=== PATIENT | female | born 1990 | race Caucasian/White ===

== ENCOUNTER → 2017-10-15 | Outpatient (CLI) | payer OTHER | END | disposition home or self-care (01) | LOC: US 15:21 | DX: O26.842 Uterine size-date discrepancy, second trimester (principal); O09.92 Supervision of high risk pregnancy, unspecified, second trimester; Z3A.20 20 weeks gestation of pregnancy | CPT/HCPCS: 76805 ==

== ENCOUNTER 2017-10-19 14:38 | Observation (INO) | payer OTHER | END 2017-10-19 17:40 | disposition home or self-care (01) | LOC: 3 SO LND 14:38 | DX: O26.892 Other specified pregnancy related conditions, second trimester (principal); R10.10 Upper abdominal pain, unspecified; Z3A.20 20 weeks gestation of pregnancy | CPT/HCPCS: 76805; G0378; G0379 ==

== ENCOUNTER 2017-12-05 16:33 | Emergency (ER) | payer OTHER ==
[2017-12-05] MEDS ORDERED: diphenhydrAMINE 50 MG/ML VIAL ×2 (16:44)
[2017-12-05] MEDS ORDERED: methylPREDNISolone SOD SUCC PF 125 MG/2 ML VIAL. ×2 (16:44)
[2017-12-05] MEDS: IV NORMAL SALINE 1000ML BAG 1,000 ML IV ×2 (16:48)
[2017-12-05] MEDS: diphenhydrAMINE 50 MG/ML VIAL IVP ×2 (16:51)
[2017-12-05] MEDS: methylPREDNISolone SOD SUCC PF 125 MG/2 ML VIAL. IV ×2 (16:53)
== END 2017-12-05 20:03 | disposition home or self-care (01) ==
LOC: ER 16:33
DX: T78.1XXA Other adverse food reactions, not elsewhere classified, initial encounter (principal); L29.8 Other pruritus; R07.89 Other chest pain; R20.2 Paresthesia of skin; Z91.018 Allergy to other foods; Z91.010 Allergy to peanuts; X58.XXXA Exposure to other specified factors, initial encounter
CPT/HCPCS: 93005; 96361; 96374; 96375; 99285-25; J1200; J2930; J7030

== ENCOUNTER 2018-02-13 16:10 | Observation (INO) | payer OTHER ==
[2018-02-13] MEDS ORDERED: IV RINGERS,LACTATED 1000ML 1,000 ML IV (16:30)
== END 2018-02-13 18:00 | disposition home or self-care (01) ==
LOC: 3 SO LND 16:10
DX: O42.92 Full-term premature rupture of membranes, unspecified as to length of time between rupture and onset of labor (principal); Z3A.37 37 weeks gestation of pregnancy
CPT/HCPCS: 59025; 76815; G0378; G0379

== ENCOUNTER 2018-02-27 05:58 | Inpatient (IN) | payer OTHER ==
[2018-02-27] MEDS ORDERED: IV RINGERS,LACTATED 1000ML 1,000 ML IV (06:30)
[2018-02-27] MEDS: IV RINGERS,LACTATED 1000ML 1,000 ML IV ×2 (06:32→07:41)
[2018-02-27] MEDS ORDERED: ATROPINE 0.5 MG/5 ML DISP.SYRINGE. IV (06:45)
[2018-02-27] MEDS ORDERED: NALOXONE 0.4 MG/ML VIAL. IV (06:45)
[2018-02-27 06:51] LABS: HEMATOCRIT 32.5 % (36.0-47.0); HEMOGLOBIN 11.3 g/dL (12.0-15.5); MEAN CORPUSCULAR HEMOGLOBIN 31 pg (25-35); MEAN CORPUSCULAR HGB CONC 35 g/dL (31-37); MEAN CORPUSCULAR VOLUME 89 fL (79-100); PLATELET COUNT 161 x10^3/uL (140-400); RED BLOOD COUNT 3.65 x10^6/uL (3.50-5.40)
[2018-02-27] MEDS ORDERED: MORPHINE PF 5 MG/10 ML VIAL. (07:34)
[2018-02-27] MEDS ORDERED: fentaNYL PF VIAL 100 MCG/2 ML VIAL (07:34)
[2018-02-27] MEDS ORDERED: METOCLOPRAMIDE HCL 10 MG/2 ML VIAL. (07:34)
[2018-02-27] MEDS ORDERED: DEXAMETHASONE SOD PHOS 20 MG/5 ML VIAL. (07:34)
[2018-02-27] MEDS ORDERED: FAMOTIDINE 20 MG/2 ML VIAL (07:34)
[2018-02-27] MEDS ORDERED: ONDANSETRON PF 4 MG/2 ML VIAL. (07:34)
[2018-02-27] MEDS: CITRIC ACID/SODIUM CITRATE 30 ML SOLUTION. PO (07:41)
[2018-02-27] MEDS ORDERED: PHENYLEPHRINE in 0.9% NACL PF 1 MG/10 ML SYRINGE. IV (08:26)
[2018-02-27] MEDS ORDERED: OXYTOCIN 10 UNIT/ML VIAL. ×2 (08:26→08:54)
[2018-02-27] MEDS ORDERED: ONDANSETRON PF 4 MG/2 ML VIAL. IV (09:00)
[2018-02-27] MEDS ORDERED: ZOLPIDEM 5 MG TABLET. PO (09:00)
[2018-02-27] MEDS ORDERED: MAG HYDROX/ALUMINUM HYD/SIMETH 30 ML ORAL.SUSP PO (09:00)
[2018-02-27] MEDS ORDERED: OXYTOCIN 30 UNIT/500 ML PREMIX 500 ML IV (09:00)
[2018-02-27] MEDS ORDERED: diphenhydrAMINE ORAL ELIXIR 12.5 MG/5 ML ML PO (09:00)
[2018-02-27] MEDS ORDERED: 0.9 % SODIUM CHLORIDE 10 ML DISP.SYRIN. IV (09:00)
[2018-02-27] MEDS: KETOROLAC 30 MG/ML INJ. IV ×2 (10:24→18:19)
[2018-02-28] MEDS: IBUPROFEN 800 MG TABLET. PO ×3 (02:06→17:54)
[2018-02-28 04:20] LABS: RPR Non Reactive (Non Reactive)
[2018-02-28 07:24] LABS: ADD MAN DIFF? NO
[2018-02-28 07:29] LABS: BASO % 0 % (0-3); EOS # 0.1 x10^3/uL (0.0-0.7); EOS % 1 % (0-3); HEMATOCRIT 24.6 % (36.0-47.0); HEMOGLOBIN 8.5 g/dL (12.0-15.5); LYMPH # 1.4 x10^3/uL (1.0-4.8); LYMPH % 14 % (24-48); MEAN CORPUSCULAR HEMOGLOBIN 31 pg (25-35); MEAN CORPUSCULAR HGB CONC 35 g/dL (31-37); MEAN CORPUSCULAR VOLUME 90 fL (79-100); MONO # 0.7 x10^3/uL (0.0-1.1); MONO % 7 % (0-9); NEUT # 8.1 x10^3uL (1.8-7.7); NEUT % 79 % (31-73); PLATELET COUNT 125 x10^3/uL (140-400); RED BLOOD COUNT 2.74 x10^6/uL (3.50-5.40); WHITE BLOOD COUNT 10.2 x10^3/uL (4.0-11.0)
[2018-02-28] MEDS: DOCUSATE SODIUM 100 MG CAPSULE. PO (08:29)
[2018-02-28] MEDS: FERROUS SULFATE 325 MG TABLET. PO ×2 (08:29→17:00)
[2018-02-28] MEDS: oxyCODONE/APAP 5/325 1 TAB TABLET PO ×4 (08:29→21:30)
[2018-02-28] MEDS: SIMETHICONE 80 MG TAB.CHEW PO (08:29)
[2018-03-01] MEDS: IBUPROFEN 800 MG TABLET. PO ×3 (01:18→16:24)
[2018-03-01] MEDS: SIMETHICONE 80 MG TAB.CHEW PO ×2 (06:42→10:09)
[2018-03-01] MEDS: oxyCODONE/APAP 5/325 1 TAB TABLET PO ×4 (07:01→20:55)
[2018-03-01] MEDS ORDERED: MAGNESIUM HYDROXIDE 2,400 MG/30 ML ORAL.SUSP. PO ×2 (10:00)
[2018-03-01] MEDS: SENNOSIDES/DOCUSATE 8.6/50MG TABLET. PO (10:09)
[2018-03-01] MEDS: FERROUS SULFATE 325 MG TABLET. PO ×2 (10:10→20:52)
[2018-03-01] MEDS: BISACODYL 10 MG SUPP.RECT. PR (16:24)
[2018-03-01] MEDS: DOCUSATE SODIUM 100 MG CAPSULE. PO (20:52)
[2018-03-02] MEDS: IBUPROFEN 800 MG TABLET. PO ×2 (02:45→16:16)
[2018-03-02] MEDS: oxyCODONE/APAP 5/325 1 TAB TABLET PO ×3 (02:46→16:16)
[2018-03-02] MEDS: SIMETHICONE 80 MG TAB.CHEW PO (09:16)
[2018-03-02] MEDS: FERROUS SULFATE 325 MG TABLET. PO ×2 (09:17→16:15)
[2018-03-02] MEDS: SENNOSIDES/DOCUSATE 8.6/50MG TABLET. PO (09:17)
[2018-03-02] MEDS: DOCUSATE SODIUM 100 MG CAPSULE. PO (16:15)
[2018-03-02] MEDS: DIPHTH,PERTUSS(ACELL),TET TOX 0.5 ML DISP.SYRIN. VAX IM (18:11)
== END 2018-03-02 18:26 | disposition home or self-care (01) | DRG 766 ==
LOC: 3 SO LND 05:58
PROC: 10D00Z1 Extraction of Products of Conception, Low, Open Approach (ICD-10-PCS; principal; 2018-02-27)
DX: O34.211 Maternal care for low transverse scar from previous cesarean delivery (principal); O69.81X0 Labor and delivery complicated by cord around neck, without compression, not applicable or unspecified; Z23 Encounter for immunization; Z37.0 Single live birth; Z3A.39 39 weeks gestation of pregnancy
CPT/HCPCS: 36415; 85025; 85027; 86593; 86850; 86900; 86901; 88307; 90715; J0690; J1100; J1885; J2270; J2370; J2405; J2590; J2765; J3010; J7120; S0028

== ENCOUNTER → 2019-03-30 | Outpatient (CLI) | payer BC ==
[2018-03-02 16:45] VITALS: BP 119/73
[~2019-03-30] MED LIST: DOCU-109 PO; EPIPEN 2-P0.3 MG/0.3 IJ; IBUP800T19 PO; OXYC1TAB7 PO; PREN1TAB9 PO
--- NOTE | 2019-03-30 17:42 | RAD ---
First trimester ultrasound less than 14 weeks: INDICATIONS: No heart tones. Findings: Transabdominal study: The uterus is anteverted in position. No gestational sac is seen. Therefore, transvaginal sonography will be performed. The right ovary is enlarged due to a prominent cyst measuring 4.4 cm. Color Doppler flow is seen within the right ovary. The left ovary is not visualized. Transvaginal sonography: There is a gestational sac within the lower uterine segment just above the cervix. [place]-rump length is 0.99 cm which corresponds to gestational age of 7 weeks 0 days. No heartbeat is seen. Yolk sac is identified. The findings are consistent with a spontaneous . Cervical length: Less than 3 cm. Uterus: No uterine fibroids are seen. Maternal ovaries: Right ovary: 4.1 cm x 6.3 cm x 4.3 cm. There is a 4.9 cm corpus luteum cyst. Color-flow Doppler: Present Left ovary: 3.8 cm x 1.9 cm x 2.3 cm. Normal. Color-flow Doppler: Present Adnexa: no adnexal masses are seen. Free fluid: None. Impression: Sonographic findings are consistent with spontaneous of a single IUP with approximate gestational age of [address] Mccoy was present during the scan. Electronically signed by: Alfredo Covarrubias MD (03/30/2019 5:39 PM) [id number]
== END | disposition home or self-care (01) ==
LOC: US 16:42
PROVIDERS: ATTEND Obstetrics & Gynecology
DX: O09.91 Supervision of high risk pregnancy, unspecified, first trimester (principal); O26.891 Other specified pregnancy related conditions, first trimester; N83.10 Corpus luteum cyst of ovary, unspecified side; Z3A.01 Less than 8 weeks gestation of pregnancy
CPT/HCPCS: 76801; 76817